=== PATIENT | female | born 1960 | race Caucasian/White ===

== ENCOUNTER → 2016-08-06 | Outpatient (CLI) | payer BC ==
[2016-08-06 10:58] LABS: CHLORIDE,CL 108 mmol/L (98-110); SODIUM,NA 139 mmol/L (136-146)
== END | disposition home or self-care (01) ==
LOC: MW.CHFP 10:15
PROVIDERS: ATTEND Nurse Practitioner Family
DX: Z00.00 Encounter for general adult medical examination without abnormal findings (principal); R53.83 Other fatigue
CPT/HCPCS: 36415; 80053; 80061; 82652; 84443; 85027

== ENCOUNTER 2018-11-17 19:25 | Emergency (ER) | payer BC, OTHER ==
[2018-11-17 19:36] VITALS: BP 125/71
[2018-11-17] MEDS ORDERED: Lidocaine 1% with EPINEPHrine 1:100,000 10 ML MDV INJECT ONE (19:36)
[2018-11-17] MEDS ORDERED: Diphtheria,Pertussis(Acell),Tetanus Vaccine 0.5 ML Syringe IM ONE (19:36)
--- NOTE | 2018-11-17 19:37 | EDM.PDOC ---
ED HPI GENERAL MEDICAL PROBLEM - General Chief Complaint: Laceration Stated Complaint: CUT LEFT HAND Time Seen by Provider: 11/17/18 19:36 Source of Information: Reports: Patient - History of Present Illness INITIAL COMMENTS - FREE TEXT/NARRATIVE: HISTORY AND PHYSICAL: History of present illness: [Patient presents with laceration left hyperthenar eminence, she was coring a tomato, essentially he received a puncture wound 1.5 cm to the hyperthenar eminence full-thickness on skin no protrusion into deep tissues, she was stating that she had loss of sensation but full motor however on exam she does have full sensation nausea vomiting chills sweats ] Review of systems: As per history of present illness and below otherwise all systems reviewed and negative. Past medical history: As per history of present illness and as reviewed below otherwise noncontributory. Surgical history: As per history of present illness and as reviewed below otherwise noncontributory. Social history: No reported history of drug or alcohol abuse. Family history: As per history of present illness and as reviewed below otherwise noncontributory. Physical exam: HEENT: Atraumatic, normocephalic, pupils reactive, negative for conjunctival pallor or scleral icterus, mucous membranes moist, throat clear, neck supple, nontender, trachea midline. Lungs: Clear to auscultation, breath sounds equal bilaterally, chest nontender. Heart: S1S2, regular, negative for clicks, rubs, or JVD. Abdomen: Soft, nondistended, nontender. Negative for masses or hepatosplenomegaly. Negative for costovertebral tenderness. Pelvis: Stable nontender. Genitourinary: Deferred. Rectal: Deferred. Extremities: Atraumatic, negative for cords or calf pain. Neurovascular unremarkable. Neuro: Awake, alert, oriented. Cranial nerves II through XII unremarkable. Cerebellum unremarkable. Motor and sensory unremarkable throughout. Exam nonfocal. Diagnostics: [] Therapeutics: [Lidocaine Tetanus status was updated Cleansed and explored Lidocaine #3 4-0 Prolene sutures interrupted Bacitracin Telfa gauze dressing Sutures out in 10 days Return if symptoms persist or worsen Standard wound care instruction ] Impression: [Left hand laceration], on 1.5 cm, simple, linear Definitive disposition and diagnosis as appropriate pending reevaluation and review of above. Left Hand Pain Score (Numeric/FACES): 9 - Related Data Allergies Allergy/AdvReac Type Severity Reaction Status Date / Time carisoprodol [From Soma] Allergy Swelling Verified 11/17/18 19:32 cefaclor [From Ceclor] Allergy Nausea and Verified 11/17/18 19:32 Vomiting cephalexin monohydrate Allergy Nausea and Verified 11/17/18 19:32 [From Keflex] Vomiting esomeprazole magnesium Allergy Shortness Verified 11/17/18 19:32 [From Nexium] of Breath morphine Allergy Nausea and Verified 11/17/18 19:32 Vomiting prochlorperazine Allergy Seizure Verified 11/17/18 19:32 [From Compazine] prochlorperazine edisylate Allergy Seizure Verified 11/17/18 19:32 [From Compazine] prochlorperazine maleate Allergy Seizure Verified 11/17/18 19:32 [From Compazine] Home Meds: Home Meds Furosemide [Lasix] 20 mg PO ASDIRECTED PRN 03/14/15 [History] Multivitamin [Multivitamins] 1 tab PO DAILY 03/14/15 [History] Estradiol 1 mg PO DAILY 11/17/18 [History] Past Medical History HEENT History: Reports: None Cardiovascular History: Reports: None Respiratory History: Reports: None Gastrointestinal History: Reports: None Genitourinary History: Reports: None Musculoskeletal History: Reports: Arthritis Neurological History: Reports: None Psychiatric History: Reports: Depression Endocrine/Metabolic History: Reports: None Hematologic History: Reports: None Immunologic History: Reports: None Oncologic (Cancer) History: Reports: None Dermatologic History: Reports: None - Past Surgical History Musculoskeletal Surgical History: Reports: Other (See Below) Social & Family History - Family History Family Medical History: Noncontributory - Caffeine Use Caffeine Use: Reports: Coffee, Energy Drinks Caffeine Use Comment: 3 drinks/day ED ROS GENERAL - Review of Systems Review Of Systems: See Below ED EXAM, SKIN/RASH Exam: See Below Course - Vital Signs Last Recorded V/S: Last Vital Signs Temp 97.4 F 11/17/18 19:33 Pulse 76 11/17/18 19:33 Resp 19 11/17/18 19:33 BP 125/71 11/17/18 19:33 Pulse Ox 99 11/17/18 19:33 - Orders/Labs/Meds Orders: Active Orders 24 hr Category Date Time Status Vaccines to be Administered [RC] PER UNIT ROUTINE Care 11/17/18 19:36 Active Meds: Medications Discontinued Medications Generic Name Dose Route Start Last Admin Trade Name Antwan PRN Reason Stop Dose Admin Diphtheria/Tetanus/Acell Pertussis 0.5 ml 11/17/18 19:36 11/17/18 19:49 Adacel IM 11/17/18 19:37 0.5 ml .ONCE ONE Administration Lidocaine/Epinephrine 10 ml 11/17/18 19:36 11/17/18 19:49 Xylocaine 1% With Epinephrine 1:100,000 INJECT 11/17/18 19:37 Not Given ONETIME ONE Lidocaine/Epinephrine Confirm 11/17/18 19:42 11/17/18 19:49 Xylocaine 1% With Epinephrine 1:100,000 Administered 11/17/18 19:43 20 ml Dose Administration 20 ml .ROUTE .STK-MED ONE Departure - Departure Time of Disposition: 20:08 Disposition: Home, Self-Care 01 Condition: Good Clinical Impression: Laceration - Discharge Information Referrals: Crystal Mesa NP [Primary Care Provider] - Forms: ED Department Discharge Additional Instructions: Standard wound care instructions Keep wound clean and dry for 48 hours Bacitracin Telfa gauze dressing return if symptoms persist or worsen or signs of infection including fever nausea vomiting chills sweats redness warmth or pus drainage Sutures out in 10 days, may return to ER for suture removal or primary care [facility] [address] [place], [place] [id number] The following information is given to patients seen in the emergency department who are being discharged to home. This information is to outline your options for follow-up care. We provide all patients seen in our emergency department with a follow-up referral. The need for follow-up, as well as the timing and circumstances, are variable depending upon the specifics of your emergency department visit. If you don't have a primary care physician on staff, we will provide you with a referral. We always advise you to contact your personal physician following an emergency department visit to inform them of the circumstance of the visit and for follow-up with them and/or the need for any referrals to a consulting specialist. The emergency department will also refer you to a specialist when appropriate. This referral assures that you have the opportunity for follow-up care with a specialist. All of these measure are taken in an effort to provide you with optimal care, which includes your follow-up. Under all circumstances we always encourage you to contact your private physician who remains a resource for coordinating your care. When calling for follow-up care, please make the office aware that this follow-up is from your recent emergency room visit. If for any reason you are refused follow-up, please contact the [facility] emergency department at and asked to speak to the emergency department charge nurse. - My Orders Last 24 Hours: My Active Orders 11/17/18 19:36 Vaccines to be Administered [RC] PER UNIT ROUTINE - Assessment/Plan Last 24 Hours: My Active Orders 11/17/18 19:36 Vaccines to be Administered [RC] PER UNIT ROUTINE
[2018-11-17] MEDS ORDERED: Lidocaine 1% with EPINEPHrine 1:100,000 20 ML MDV ONE (19:42)
[2018-11-17] MEDS ORDERED: Bacitracin Oint 1 GM U/D Packet ONE (20:15)
[2018-11-17] MEDS ORDERED: Bacitracin Oint 1 GM U/D Packet TOP ONE (20:15)
== END 2018-11-17 20:30 | disposition home or self-care (01) ==
LOC: MW.ED 19:25
DX: S61.412A Laceration without foreign body of left hand, initial encounter (principal); Z23 Encounter for immunization; Z88.8 Allergy status to other drugs, medicaments and biological substances; Z88.1 Allergy status to other antibiotic agents; Z88.5 Allergy status to narcotic agent; Z79.899 Other long term (current) drug therapy; W26.8XXA Contact with other sharp object(s), not elsewhere classified, initial encounter
CPT/HCPCS: 12001; 90471; 90715; 99282

== ENCOUNTER 2018-11-26 12:30 | Emergency (ER) | payer BC | END 2018-11-26 12:37 | disposition left against medical advice (07) | LOC: MW.ED 12:30 | DX: Z53.21 Procedure and treatment not carried out due to patient leaving prior to being seen by health care provider (principal) ==

== ENCOUNTER 2021-09-01 10:08 | Day surgery (SDC) | payer BC ==
[~2021-09-01 10:08] MED LIST: Lactated Ringers 1,000 ML IV SCH; Lidocaine 2% 5 ML SDV ONE; Propofol 200 MG/20 ML SDV ONE; fentaNYL 100 MCG/2 ML SDV ONE
[2021-09-01] MEDS ORDERED: Levofloxacin/Dextrose 5%-Water 750 MG in Premix Bag 1 BAG IV ONE (10:15)
[2021-09-01 11:59] VITALS: BP 120/71; PULSE 63
== END 2021-09-01 12:15 | disposition home or self-care (01) ==
LOC: MW.SDS 10:08
PROVIDERS: ATTEND Surgery
DX: K64.8 Other hemorrhoids (principal); K21.9 Gastro-esophageal reflux disease without esophagitis; E55.9 Vitamin D deficiency, unspecified; Z88.8 Allergy status to other drugs, medicaments and biological substances; Z88.5 Allergy status to narcotic agent; Z98.890 Other specified postprocedural states; Z87.891 Personal history of nicotine dependence
CPT/HCPCS: 43239; 45380; J1956; J2704; J3010; J7120; 00813